=== PATIENT | female | born 1935 | race Caucasian/White ===

== ENCOUNTER → 2017-05-02 | Outpatient (CLI) | payer MEDICARE ==
[~2017-05-02] MED LIST: CAL-CITRATE PL1 EACH PO; GLYBURIDE PO; HUMULIN 70100 UNIT/1 SUBQ; INDAPAMIDE1.25 MG PO; KCL PO; KLOR-CON PO; LISINOPRIL PO; LOZOL PO; METFORMIN PO; NORVASC PO; NORVASC10 MG PO; PRAVASTATIN SOD40 MG PO; TYLENOL EXTRA500 M1 PO; VICODIN 5/500 T1 TAB PO; ZESTRIL40 MG PO; ZOFRAN PO
== END | disposition home or self-care (01) ==
LOC: CECH 13:03
DX: R60.0 Localized edema (principal); I35.0 Nonrheumatic aortic (valve) stenosis; I36.1 Nonrheumatic tricuspid (valve) insufficiency; I51.7 Cardiomegaly
CPT/HCPCS: 93306

== ENCOUNTER → 2017-05-13 | Outpatient (CLI) | payer MEDICARE ==
[2017-05-13 12:44] LABS: ARTERIAL BLD GAS O2 SATURATION 80.9 % (90.0-100.0); ARTERIAL BLOOD GAS CARBOXY HB 1.4 %sat (0.0-9.0); ARTERIAL BLOOD GAS HCO3 35.6 mmol/L; ARTERIAL BLOOD GAS MET HB 0.5 %sat (0.0-2.0)
[2017-05-13 12:45] LABS: ARTERIAL BLOOD GAS ALLEN TEST NORMAL; ARTERIAL BLOOD GAS ART SITE RIGHT RADIAL; ARTERIAL BLOOD GAS PCO2 50.1 mmHg (35.0-45.0); ARTERIAL BLOOD GAS PO2 47.1 mmHg (80.0-100); ARTERIAL DRAW? YES
== END | disposition home or self-care (01) ==
LOC: CRC 12:21
PROVIDERS: Internal Medicine
DX: R06.02 Shortness of breath (principal); R60.0 Localized edema
CPT/HCPCS: 36600; 82803

== ENCOUNTER → 2017-05-29 | Outpatient (CLI) | payer MEDICARE ==
--- NOTE | ~2017-05-29 | PFT ---
[id number] [facility] [address] [facility]. [place], [place] [address] [id number] O MR#: [id number] NAME: LAUREN JOLLY ROOM: SEX: F STUDY DATE/TIME: 06/10/2017 : 1935 AGE: 82 STUDY DESCRIPTION: Attending Physician: Chad Hart M.D. Referring Physician: Chad Hart M.D. Primary Care Physician: Chad Hart M.D. PULMONARY DIAGNOSTIC REPORT EXAM Pulmonary function test. FINDINGS Spirometry is normal. There is no significant response to bronchodilators. Flow volume loop does suggest a possible obstructive defect. Lung volumes suggest air trapping. Diffusion capacity is mildly reduced. Isolated reduced diffusion capacity can be seen in pulmonary vascular disease, really interstitial lung disease, anemia, possibly emphysema, etc. Dictated by... Dilip Barker M.D. WOL/gz TD: 06/11/2017 07:18 JOB #: [id number] CC: Chad Hart M.D. PULMONARY DIAGNOSTIC REPORT Page 1 of 1
== END | disposition home or self-care (01) ==
LOC: CRC 09:19
DX: R06.02 Shortness of breath (principal); E87.2 Acidosis; R60.0 Localized edema
CPT/HCPCS: 94060; 94726; 94729